=== PATIENT | female | born 1945 | race Caucasian/White ===

== ENCOUNTER → 2019-10-28 11:09 | Outpatient (CLI) | payer MEDICARE, OTHER, SELFPAY ==
--- NOTE | 2019-10-28 | DI.MRI.S_ITS ---
PROCEDURE: MR SHOULDER LT WO CON INDICATIONS: Pain in left shoulder TECHNIQUE: Noncontrast oblique coronal T2 fast spin echo with fat saturation, oblique sagittal T1 spin echo and T2 fast spin echo with fat saturation, axial T1 spin echo and T2 fast spin echo with fat saturation through the shoulder. COMPARISON: None. FINDINGS: Image quality: Excellent. Rotator cuff: Poorly defined full-thickness versus high-grade partial thickness articular and bursal sided tear of the supraspinatus and infraspinatus tendons. However, no definite retracted tendon appearance. This primarily involves the critical zone. The teres minor tendon appears intact. Subscapularis tendinopathy and intrasubstance signal change with thickening. Mild supraspinatus atrophy and fatty infiltration of the subscapularis and infraspinatus muscles. Bones and bursae: No bone marrow contusions or fractures. Moderate acromioclavicular joint degeneration. Mild glenohumeral degenerative changes. Acromion demonstrates conventional anatomy, without an os acromiale. Severe subacromial-subdeltoid bursitis. Capsule and soft tissues: Intrasubstance intermediate signal changes within the superior labrum. The remaining labrum demonstrate mild blunted appearance otherwise no discrete tear seen Tendinopathy involving the intra-articular segment of the long head biceps tendon without complete rupture The rotator interval appears normal, without fibrosis. Coracohumeral ligament intact. IMPRESSION: Poorly defined high-grade partial thickness articular and bursal sided (versus non-retracted full-thickness) tear involving the critical zone of the supraspinatus and infraspinatus tendons Supraspinatus muscle atrophy Subscapularis tendinopathy and thickening Severe subacromial-subdeltoid bursitis Presumed superior labral degeneration, potentially age-appropriate versus chronic tear. Long head biceps tendinopathy Dictated by: Payam Jaeger M.D. on 10/28/2019 at 14:05 Approved by: Payam Jaeger M.D. on 10/28/2019 at 14:13
== END ==
PROVIDERS: Family Provider Physician Assistant Medical; PCP Physician Assistant Medical; Visit Provider Orthopaedic Surgery
DX: M25.512 Pain in left shoulder (principal); M75.112 Incomplete rotator cuff tear or rupture of left shoulder, not specified as traumatic; M75.52 Bursitis of left shoulder; M67.922 Unspecified disorder of synovium and tendon, left upper arm
CPT/HCPCS: 73221

== ENCOUNTER → 2021-07-02 13:21 | Outpatient (CLI) | payer MEDICARE, OTHER, SELFPAY ==
--- NOTE | 2021-07-02 | DI.MRI.S_ITS ---
PROCEDURE: MR CERVICAL SPINE WO CON INDICATIONS: Cervicalgia TECHNIQUE: Noncontrast sagittal T1 spin echo and T2 fast spin echo, sagittal STIR, foraminal oblique sagittal T2 fast spin echo, and axial gradient echo or T2 fast spin echo through the cervical spine. COMPARISON: [facility], CR, XR CERVICAL SPINE 2 OR 3 VIEWS, 06/17/2021, 9:06. FINDINGS: Image quality: Excellent. Alignment and Curvature: Straightening of the normal lordotic curvature. Trace retrolisthesis of C6 on C7 Bone Marrow: Multilevel degenerative endplate sclerosis and spurring. Diffuse facet arthropathy. No evidence of acute fracture Spinal Cord: Visualized spinal cord has normal size and signal. No cerebellar tonsillar herniation. Paraspinous Soft Tissues: No paravertebral masses. Prevertebral soft tissues are normal in thickness. C2-C3: No canal stenosis. Mild to moderate right foraminal stenosis with slight nerve root compression. Mild left foraminal narrowing. C3-C4: Mild canal narrowing with effacement of the anterior thecal sac and mild mass effect on the cord. Severe right foraminal stenosis with nerve root compression. Mild to moderate left foraminal narrowing C4-C5: Minimal canal narrowing. Severe right foraminal stenosis with nerve root compression. Mild left foraminal narrowing. C5-C6: No definite canal stenosis. Severe right foraminal narrowing with nerve root compression. Mild to moderate left foraminal narrowing. C6-C7: Mild canal narrowing. Mild right foraminal stenosis. Moderate left foraminal stenosis. C7-T1: Mild canal narrowing. Severe right foraminal stenosis with nerve root compression. Severe left foraminal stenosis with nerve root compression. IMPRESSION: Straightening of the normal lordotic curvature. Multilevel spondylitic changes and facet arthropathy Numerous bilateral foraminal stenoses as detailed above by spinal level. Dictated by: Payam Jaeger M.D. on 07/02/2021 at 14:09 Approved by: Payam Jaeger M.D. on 07/02/2021 at 14:16
== END ==
PROVIDERS: Family Provider Physician Assistant Medical; PCP Physician Assistant Medical; Referring Provider Orthopaedic Surgery; Visit Provider Orthopaedic Surgery
DX: M54.2 Cervicalgia (principal); M47.812 Spondylosis without myelopathy or radiculopathy, cervical region; M48.02 Spinal stenosis, cervical region
CPT/HCPCS: 72141

== ENCOUNTER → 2023-08-31 10:46 | Outpatient (CLI) | payer MEDICARE, OTHER, SELFPAY ==
--- NOTE | 2023-08-31 | DI.MRI.S_ITS ---
PROCEDURE: MR ANGIO HEAD WO CON INDICATIONS: PULSATILE TINNITUS, RIGHT EAR TECHNIQUE: Noncontrast axial 3-D [id number] MR angiogram, with 3-dimensional maximum intensity projection (MIP) reformats of the internal carotid arteries and posterior circulation then performed. COMPARISON: [facility], , MR ANGIO NECK W CON, 08/31/2023, 11:15. FINDINGS: Image quality: Excellent. Anterior circulation: Intracranial internal carotid arteries demonstrate normal size and intraluminal flow signal. The flow within the paired anterior cerebral arteries is normal and symmetric. The flow within the middle cerebral arteries is normal and symmetric. The anterior communicating artery is seen. No stenoses, occlusions, or aneurysms. Posterior circulation: Visualized portions of the vertebral arteries demonstrate normal caliber, and join to form a normal appearing basilar artery. The flow within the posterior cerebral arteries is normal and symmetric. No stenoses, occlusions, or aneurysms. No abnormal vascular loops can be seen into the internal auditory canals. IMPRESSION: No imaging explanation is found for this patient's presenting symptoms. No abnormal vascular loops can be seen into the internal auditory canals. Dictated by: Ze Gao M.D. on 08/31/2023 at 11:26 Approved by: Ze Gao M.D. on 08/31/2023 at 11:27
--- NOTE | 2023-08-31 | DI.MRI.S_ITS ---
PROCEDURE: MR ANGIO NECK W CON INDICATIONS: PULSATILE TINNITUS, RIGHT EAR TECHNIQUE: Axial and sagittal TruFISP through the neck. Coronal dynamic MRA after the administration of contrast in the arterial and venous phases, with rotating 3-dimensional maximum intensity projection (MIP) reformats constructed from subtraction images. COMPARISON: [facility], , MR ANGIO HEAD WO CON, 08/31/2023, 11:05. FINDINGS: Image quality: Diagnostic, with note made of motion artifact. Carotid system: Incidental note is made of a common origin of the right brachiocephalic artery and the left common carotid artery (bovine type arch). This is considered to be a developmental variant of no clinical consequence. The origins of the common carotid arteries appear normal. The calibers and courses of the common carotid arteries are likewise normal. The carotid bifurcations appear normal bilaterally. The internal carotid arteries are widely patent up to the [place]. Posterior circulation: The origins of the vertebral arteries are unremarkable. The more superior portions of the vertebral arteries demonstrate normal course and caliber. Vertebral arteries join to form a normal appearing basilar artery. Miscellaneous: Subclavian arteries are patent throughout. Pre-contrast images through the neck demonstrate no soft tissue abnormalities. IMPRESSION: Unremarkable neck MR angiogram, without a cause of the patient's presenting history identified. No findings of dissection are seen. Additional findings: Bovine type aortic branching pattern Any quantitative measurements of stenosis were performed using NASCET criteria. Dictated by: Ze Gao M.D. on 08/31/2023 at 11:28 Approved by: Ze Gao M.D. on 08/31/2023 at 11:29
== END ==
PROVIDERS: Family Provider Physician Assistant Medical; PCP Physician Assistant Medical; Referring Provider Otolaryngology; Visit Provider Otolaryngology
DX: H93.A1 Pulsatile tinnitus, right ear (principal)
CPT/HCPCS: 70544; 70548